=== PATIENT | male | born 1955 | race Caucasian/White ===

== ENCOUNTER → 2020-08-19 | Outpatient (CLI) | payer MEDICARE | LOC: CT 09:30 | PROVIDERS: ATTEND Internal Medicine | DX: Z12.2 Encounter for screening for malignant neoplasm of respiratory organs (principal); Z87.891 Personal history of nicotine dependence | CPT/HCPCS: 71250; 76770 ==

== ENCOUNTER → 2021-05-16 | Outpatient (CLI) | payer MEDICARE | LOC: RAD 10:45 | PROVIDERS: ATTEND Nurse Practitioner Gerontology | DX: R05.3 Chronic cough (principal) | CPT/HCPCS: 71046 ==

== ENCOUNTER → 2021-09-21 | Outpatient (CLI) | payer MEDICARE | LOC: CT 16:13 | PROVIDERS: ATTEND Family Medicine | DX: Z12.2 Encounter for screening for malignant neoplasm of respiratory organs (principal); F17.200 Nicotine dependence, unspecified, uncomplicated | CPT/HCPCS: 71250 ==

== ENCOUNTER 2023-11-28 15:30 | Emergency (ER) | payer MEDICARE ==
[~2023-11-28] VITALS: Ht 172.7 cm; Wt 85.3 kg
[2023-11-28 15:48] VITALS: TEMP 97.5
[2023-11-28] MEDS: ONDANSETRON HCL INJ 2MG/ML 2ML 2 MG/ML VIAL IV STA (16:24)
[2023-11-28] MEDS: SODIUM CHLORIDE 0.9% 1000ML 1,000 ML IV STA (16:24)
[2023-11-28 16:25] LABS: BASOPHILS # (AUTO) 0.1 (0.0-0.1); BASOPHILS % 0.9 % (0.0-1.0); EOSINOPHILS # (AUTO) 0.4 (0.0-0.4); EOSINOPHILS % 3.8 % (0.0-6.0); HEMATOCRIT 38.4 % (38.2-49.6); HEMOGLOBIN 12.8 g/dL (14.0-18.0); LYMPHOCYTES # (AUTO) 2.3 (1.0-3.2); LYMPHOCYTES % 22.4 % (18.0-39.1); MEAN CORPUSCULAR HEMOGLOBIN 30.4 pg (28-32); MEAN CORPUSCULAR HGB CONC 33.3 g/dL (31-35); MEAN CORPUSCULAR VOLUME 91.2 fL (81-99); MONOCYTES # (AUTO) 0.8 (0.2-0.8); MONOCYTES % 7.6 % (4.4-11.3); NEUTROPHILS # (AUTO) 6.8 (2.1-6.9); PLATELET COUNT 279 x10e3/uL (140-360); RED BLOOD COUNT 4.21 x10e6/uL (4.3-5.7); RED CELL DISTRIBUTION WIDTH 13.3 % (11.7-14.4); WHITE BLOOD COUNT 10.43 x10e3/uL (4.8-10.8)
[2023-11-28] MEDS: Morphine 4mg INJECTION 4 MG/ML INJ IV ONE (16:25)
[2023-11-28] MEDS: KETOROLAC TROMETHAMINE 30 MG/ML VIAL IV ONE (16:25)
[2023-11-28 16:37] LABS: INR 0.86; PROTHROMBIN TIME 12.2 seconds (11.9-14.5)
[2023-11-28 16:40] LABS: PARTIAL THROMBOPLASTIN TIME 21.1 seconds (23.8-35.5)
[2023-11-28 16:48] LABS: ALANINE AMINOTRANSFERASE 17 IU/L (0-55); ALBUMIN 3.9 g/dL (3.5-5.0); ALBUMIN/GLOBULIN RATIO 1.7 (0.8-2.0); ALKALINE PHOSPHATASE 50 IU/L (40-150); ANION GAP 12.9 mmol/L (8-16); BILIRUBIN,TOTAL 0.2 mg/dL (0.2-1.2); BLOOD UREA NITROGEN 23 mg/dL (7-26); BUN/CREATININE RATIO 19 (6-25); CALCIUM 9.8 mg/dL (8.4-10.2); CARBON DIOXIDE 26 mmol/L (22-29); CHLORIDE 106 mmol/L (98-107); CREATINE KINASE 76 IU/L (30-200); CREATININE, SERUM 1.24 mg/dL (0.72-1.25); EST GLOMERULAR FILTRATION RATE 63 ML/MIN (>=60); GLUCOSE 158 mg/dL (74-118); POTASSIUM 3.9 mmol/L (3.5-5.1); SODIUM 141 mmol/L (136-145); TOTAL PROTEIN 6.2 g/dL (6.5-8.1)
[2023-11-28 16:55] LABS: TROPONIN I < 0.001 ng/mL (0-0.300)
[2023-11-28] MEDS ORDERED: IOPAMIDOL 370 MG/ML 100 ML INFUS..BTL INJ ONE (17:34)
[2023-11-28] MEDS ORDERED: SODIUM CHLORIDE 0.9% 100 ML ONE (17:34)
[2023-11-28] MEDS: ORPHENADRINE CITRATE 30 MG/ML VIAL IM ONE (17:49)
[2023-11-28 18:17] LABS: AMPHETAMINES SCREEN,URINE NEGATIVE (NEGATIVE); BENZODIAZEPINES SCREEN,URINE NEGATIVE (NEGATIVE); OPIATES SCREEN,URINE POSITIVE (NEGATIVE); PHENCYCLIDINE SCREEN,URINE NEGATIVE (NEGATIVE)
[2023-11-28 18:18] LABS: CANNABINOIDS SCREEN,URINE NEGATIVE (NEGATIVE); METHADONE SCREEN, URINE NEGATIVE (NEGATIVE)
[2023-11-28 19:20] VITALS: PULSE 48; RESP 16
[2023-11-28] MEDS ORDERED: HYDROCODON-ACE1 EA11 PO (20:23)
[2023-11-28 20:43] VITALS: BP 130/52; PULSE 51; RESP 16; TEMP 97.5; O2SAT 99
== END 2023-11-28 20:41 | disposition home or self-care (01) ==
LOC: ER 15:32
DX: S29.012A Strain of muscle and tendon of back wall of thorax, initial encounter (principal); I10 Essential (primary) hypertension; E11.65 Type 2 diabetes mellitus with hyperglycemia; E78.5 Hyperlipidemia, unspecified; F17.210 Nicotine dependence, cigarettes, uncomplicated
CPT/HCPCS: 36415; 71275; 80053; 80307; 82550; 83735; 84484; 85025; 85610; 85730; 93005; 99284; J1885; J2270; J2360; J2405; J7030; J7050; Q9967

== ENCOUNTER → 2023-12-31 | Outpatient (REF) | payer MEDICARE ==
[~2023-12-31] MED LIST: HYDROCODON-ACE1 EA11 PO
== END ==
LOC: MRI 10:46
PROVIDERS: ATTEND Specialist/Technologist, Other Surgical Technologist
DX: M54.12 Radiculopathy, cervical region (principal); M54.14 Radiculopathy, thoracic region
CPT/HCPCS: 72141